=== PATIENT | female | born 1965 | race Caucasian/White ===

== ENCOUNTER 2016-10-03 17:32 | Emergency (ER) | payer SELFPAY ==
[~2016-10-03] VITALS: Ht 172.7 cm; Wt 65.8 kg
[2016-10-03 17:51] VITALS: BP 159/90
[2016-10-03 18:13] LABS: Basophils # (auto) 0 uL; Basophils % (auto) 0.4 % (0.0-2.0); DEFINITIVE VIEW TRANSMISSION; Eosinophils # (auto) 0 uL; Eosinophils % (auto) 0.4 % (0.0-7.0); Hematocrit 48.6 % (36.0-46.0); Hemoglobin 16.1 g/dL (12.2-16.2); Lymphocytes # (auto) 1.6 uL; Lymphocytes % (auto) 24.7 % (10.0-50.0); Mean Corpuscular Hemoglobin 34.4 pg (28.0-32.0); Mean Corpuscular Hgb Conc. 33.1 g/dL (32.0-36.0); Mean Corpuscular Volume 103.9 fL (80.0-100.0); Mean Platelet Volume 5.7 fL (7.4-10.4); Monocytes # (auto) 0.4 uL; Monocytes % (auto) 5.4 % (0.0-12.0); Neutrophils # (auto) 4.6 uL; Neutrophils % (auto) 69.1 % (37.0-80.0); Platelet Count (auto) 226 10^3/uL (140-450); Red Cell Distribution Width 13.6 % (11.6-16.0); White Blood Cell 6.7 10^3/uL (4.4-10.8)
[2016-10-03 18:31] LABS: Albumin 4.4 g/dL (3.4-5.0); BUN/Creatinine Ratio 13.2; Calcium 8.7 mg/dL (8.5-10.1); Potassium 4.1 mmol/L (3.5-5.1)
[2016-10-03 18:36] LABS: Bilirubin, Total 0.3 mg/dL (0.2-1.0); Total Protein 8.4 g/dL (6.4-8.2)
== END 2016-10-03 18:15 | disposition left against medical advice (07) ==
LOC: ER 17:37
DX: F10.120 Alcohol abuse with intoxication, uncomplicated (principal); Z53.21 Procedure and treatment not carried out due to patient leaving prior to being seen by health care provider
CPT/HCPCS: 36415; 80053; 80320; 84484; 85025; 93005

== ENCOUNTER 2017-07-31 19:19 | Emergency (ER) | payer SELFPAY ==
[~2017-07-31] VITALS: Ht 177.8 cm; Wt 68.0 kg
[2017-07-31 20:19] LABS: Basophils # (auto) 0.1 uL; Lymphocytes # (auto) 1.8 uL; Mean Corpuscular Hemoglobin 39.8 pg (28.0-32.0); Mean Corpuscular Hgb Conc. 34.8 g/dL (32.0-36.0); Monocytes # (auto) 0.7 uL
[2017-07-31 20:21] LABS: Eosinophils # (auto) 0.1 uL; Eosinophils % (auto) 1.1 % (0.0-7.0); Hematocrit 41.2 % (36.0-46.0); Hemoglobin 14.3 g/dL (12.2-16.2); Lymphocytes % (auto) 40.2 % (10.0-50.0); Mean Corpuscular Volume 114.6 fL (80.0-100.0); Monocytes % (auto) 14.8 % (0.0-12.0); Neutrophils # (auto) 1.8 uL; Neutrophils % (auto) 40.9 % (37.0-80.0); Platelet Count (auto) 106 10^3/uL (140-450); Red Blood Cells 3.59 10^6/uL (4.0-5.20); Red Cell Distribution Width 12.5 % (11.8-14.3); White Blood Cell 4.5 10^3/uL (4.4-10.8)
[2017-07-31 20:30] LABS: Amphetamine Screen, Urine NEGATIVE (NEGATIVE); Barbiturate Scree,Urine NEGATIVE (NEGATIVE); Benzodiazephine Screen, Urine NEGATIVE (NEGATIVE); Cannabinoid Screen, Urine NEGATIVE (NEGATIVE); Cocaine Screen, Urine NEGATIVE (NEGATIVE); Opiate Scree,Urine NEGATIVE (NEGATIVE); Phencyclidine Screen, Urine NEGATIVE (NEGATIVE)
[2017-07-31 20:34] LABS: Partial Thromboplastin Time 24.7 sec (22.64-33.71); Prothrombin Time 10.9 sec (9.37-12.3)
[2017-07-31 20:38] LABS: Alanine Aminotransferase 67 U/L (13-56); Albumin 4.2 g/dL (3.4-5.0); Alkaline Phosphatase 78 U/L (45-117); Anion Gap 13 (5-15); Aspartate Aminotransferase 116 U/L (15-37); BUN/Creatinine Ratio 13.8; Bilirubin, Total 0.3 mg/dL (0.2-1.0); Blood Urea Nitrogen 8 mg/dL (7-18); Calcium 9.4 mg/dL (8.5-10.1); Carbon Dioxide 27 mmol/L (21-32); Chloride 106 mmol/L (98-107); GFR African American 140 mL/min; GFR Non-African American 116 mL/min; Glucose 100 mg/dL (74-106); Magnesium 1.6 mg/dL (1.6-2.6); Potassium 3.4 mmol/L (3.5-5.1); Sodium 146 mmol/L (136-145); Total Protein 8.1 g/dL (6.4-8.2)
[2017-07-31] MEDS ORDERED: THIAMINE INJ 100 MG, MULTIPLE VITAMIN 10 ML, FOLIC ACID 1 MG, MAGNESIUM SULF SDV 50% 8 ... IV SCH ×5 (23:00)
[2017-08-01] MEDS ORDERED: SODIUM CHLORIDE 0.9% 500 ML IV ONE (00:30)
[2017-08-01] MEDS ORDERED: SODIUM CHLORIDE 0.9% 1,000 ML IV ONE (02:45)
[2017-08-01 02:56] VITALS: BP 124/77
[2017-08-01] MEDS ORDERED: FAMOTIDINE 20 MG TAB PO ONE (04:30)
[2017-08-01] MEDS ORDERED: ONDANSETRON HCL 4 MG/2 ML VIAL IV ONE (04:45)
== END 2017-08-01 05:55 | disposition home or self-care (01) ==
LOC: EDBD 19:19 → ER 19:19
DX: S02.0XXA Fracture of vault of skull, initial encounter for closed fracture (principal); G92 Toxic encephalopathy; F10.129 Alcohol abuse with intoxication, unspecified; W01.0XXA Fall on same level from slipping, tripping and stumbling without subsequent striking against object, initial encounter; Y93.89 Activity, other specified; Y92.092 Bedroom in other non-institutional residence as the place of occurrence of the external cause; Y99.8 Other external cause status
CPT/HCPCS: 36415; 70450; 80053; 80307; 80320; 83735; 84484; 85025; 85379; 85610; 85730; 93005; 96361; 96365; 96375; 99285; J2405; J3411; J3475; J7030

== ENCOUNTER 2020-03-09 11:04 | Inpatient (IN) | payer BC, OTHER ==
[~2020-03-09] VITALS: Ht 175.3 cm; Wt 82.0 kg
[2020-03-09] MEDS ORDERED: SODIUM CHLORIDE 0.9% 1,000 ML IVB ONE (11:17)
[2020-03-09 12:16] LABS: Hematocrit 36.3 % (36.0-46.0); Hemoglobin 12.4 g/dL (12.2-16.2); Mean Corpuscular Hemoglobin 37.1 pg (28.0-32.0); Mean Corpuscular Hgb Conc. 34.2 g/dL (32.0-36.0); Mean Corpuscular Volume 108.5 fL (80.0-100.0); Platelet Count (auto) 103 10^3/uL (140-450); Red Blood Cells 3.34 10^6/uL (4.0-5.20); Red Cell Distribution Width 14.3 % (11.8-14.3); White Blood Cell 12.6 10^3/uL (4.4-10.8)
[2020-03-09 12:40] LABS: Alanine Aminotransferase 41 U/L (13-56); Anion Gap 6 (5-15); Blood Alcohol < 3.0 mg/dL (0-5); Blood Urea Nitrogen 56 mg/dL (7-18); Calcium 11.4 mg/dL (8.5-10.1); Chloride 82 mmol/L (98-107); Glucose 92 mg/dL (74-106); Sodium 131 mmol/L (136-145)
[2020-03-09 12:43] LABS: Alkaline Phosphatase 95 U/L (45-117); Aspartate Aminotransferase 83 U/L (15-37); BUN/Creatinine Ratio 28.4; GFR African American 34 mL/min; GFR Non-African American 28 mL/min; Total Protein 6.9 g/dL (6.4-8.2)
[2020-03-09 12:57] LABS: Band Neutrophils % (manual) 0; Basophils % (manual) 0 (0.0-2.0); Blast Cells 0; Eosinophils % (manual) 0 (0-7); Metamyelocytes % 0; Promyelocytes % 0; Reactive Lymphocytes 0
[2020-03-09 13:07] LABS: Carbon Dioxide 43 mmol/L (21-32); Potassium 2.3 mmol/L (3.5-5.1)
[2020-03-09 13:18] LABS: Lymphocytes % (manual) 4 (10.0-50.0); Monocytes % (manual) 11 (0-12); Myelocytes % 1
[2020-03-09] MEDS: POTASSIUM CHL 20MEQ/100ML 100 ML IV SCH ×3 (13:52→18:10)
[2020-03-09] MEDS ORDERED: hydrALAZINE HCL 20 MG/ML VL IV PRN (16:15)
[2020-03-09] MEDS ORDERED: SODIUM CHLORIDE 0.9% 1,000 ML IV ONE ×2 (16:15→16:30)
[2020-03-09] MEDS ORDERED: NITROGLYCERIN 0.4 MG SL TAB SL PRN (16:15)
[2020-03-09] MEDS ORDERED: MORPHINE SULF INJ 2 MG/ML SYRINGE 1ML IV PRN ×2 (16:15)
[2020-03-09] MEDS ORDERED: ONDANSETRON HCL 4 MG/2 ML VIAL IV PRN (16:15)
--- NOTE | 2020-03-09 19:50 | NUR ---
Telemetry admit from [facility] LYNMARIE admitted to Telemetry unit. Patient oriented to SONI RASCON RN primary RN, unit, room, bed, and unit policies regarding patient care and visiting hours. Patient now on continuous telemetry monitoring, tele box #[id number] and telemetry reading on arrival to unit is sinus rhythm. Patient weighed by bed scale and encouraged to call if they need something. All questions and concerns addressed, patient verbalized understanding.
[2020-03-09] MEDS ORDERED: SOD CHL 0.9%/ KCL 20MEQ 1,000 ML IV ONE (20:00)
--- NOTE | 2020-03-09 21:30 | NUR ---
SPECIMEN Urine sample collected and sent to lab.
[2020-03-09 22:00] VITALS: BP 142/80
--- NOTE | 2020-03-09 22:00 | NUR ---
HOSPITALIST Paged hospitalist to report critical lab value K+ 2.8. Awaiting call back.
[2020-03-09 23:09] VITALS: BP 142/80
[2020-03-09 23:20] LABS: Urine Bacteria FEW /hpf (None Seen); Urine Blood Negative /uL (Negative); Urine Hyaline Cast FEW /lpf (0 - 2); Urine Mucus FEW (None Seen); Urine Specific Gravity 1.016 (1.001-1.035); Urine WBC 26 /hpf (0 - 5)
[2020-03-09 23:39] LABS: Alcohol, Urine < 3.0 mg/dL (0-10); Amphetamine Screen, Urine NEGATIVE (NEGATIVE); Barbiturate Scree,Urine NEGATIVE (NEGATIVE); Benzodiazephine Screen, Urine NEGATIVE (NEGATIVE); Cannabinoid Screen, Urine NEGATIVE (NEGATIVE); Cocaine Screen, Urine NEGATIVE (NEGATIVE); Opiate Scree,Urine NEGATIVE (NEGATIVE); Phencyclidine Screen, Urine NEGATIVE (NEGATIVE)
[2020-03-10] MEDS ORDERED: POTASSIUM CHL 20MEQ/100ML 100 ML IV SCH (00:15)
--- NOTE | 2020-03-10 00:18 | NUR ---
HOSPITALIST received call from Dr. Brandt. New orders received, read back and verified.
[2020-03-10] MEDS ORDERED: ACETAMINOPHEN 325 MG TAB PO PRN (00:30)
[2020-03-10] MEDS ORDERED: cefTRIAXone 1GM/50ML D5W 50 ML IV ONE (01:30)
--- NOTE | 2020-03-10 02:00 | NUR ---
IV insertion IV access obtained, via clean sterile technique by inserting 20 gauge catheter at right AC after 1 attempt. IV secured properly. No trauma to site. Patient tolerated well.
[2020-03-10 05:00] VITALS: BP 131/78
--- NOTE | 2020-03-10 07:30 | NUR ---
OPENING NOTE RECEIVED REPORT FROM NOC RN. POC GI DR. SPENCER, SURGICAL DR. Marleny BLAKE, HOSPITAL LIST DR. Cristi GIBBONS. POSSIBLE SURGERY ON Thursday03/12/20. PATIENT RESTING IN BED NO S/S OF DISTRESS.
[2020-03-10 07:48] LABS: Mean Corpuscular Volume 109.2 fL (80.0-100.0)
[2020-03-10 07:50] LABS: Hematocrit 34.8 % (36.0-46.0); Mean Corpuscular Hemoglobin 37.7 pg (28.0-32.0); Mean Corpuscular Hgb Conc. 34.5 g/dL (32.0-36.0); Platelet Count (auto) 119 10^3/uL (140-450); Red Blood Cells 3.19 10^6/uL (4.0-5.20); Red Cell Distribution Width 14.6 % (11.8-14.3); White Blood Cell 8.7 10^3/uL (4.4-10.8)
[2020-03-10 07:52] LABS: Band Neutrophils % (manual) 0; Basophils % (manual) 0 (0.0-2.0); Blast Cells 0; Metamyelocytes % 0; Myelocytes % 0; Promyelocytes % 0; Reactive Lymphocytes 0
[2020-03-10 08:10] VITALS: BP 129/85
[2020-03-10 08:17] LABS: Albumin 2.5 g/dL (3.4-5.0); BUN/Creatinine Ratio 42.3; Bilirubin, Total 0.7 mg/dL (0.2-1.0); Calcium 9.5 mg/dL (8.5-10.1); Total Protein 6.1 g/dL (6.4-8.2)
[2020-03-10 08:19] LABS: Eosinophils % (manual) 2 (0-7); Lymphocytes % (manual) 10 (10.0-50.0); Monocytes % (manual) 12 (0-12)
[2020-03-10 08:27] LABS: Potassium 2.9 mmol/L (3.5-5.1)
--- NOTE | 2020-03-10 08:35 | NUR ---
COMMUNICATION NOTIFIED DR. Cristi GIBBONS BY TELEPHONE EXCHANGE. PATIENT POTASSIUM 2.9, TRENDING INCREASE, LEFT MESSAGE FOR LAB FINDINGS
[2020-03-10 09:00] VITALS: BP 129/85
[2020-03-10] MEDS ORDERED: cefTRIAXone 1GM/50ML D5W 50 ML IV SCH (09:00)
[2020-03-10] MEDS ORDERED: POTASSIUM CHL 20MEQ/100ML 100 ML IV ONE ×3 (09:00→13:00)
[2020-03-10] MEDS: PANTOPRAZOLE 40 MG/10 ML VIAL INJ IV SCH (12:15)
--- NOTE | 2020-03-10 12:30 | NUR ---
NEW ORDERS PLACED ADDRESSING POTASSIUM LEVELS. ANI CONTINUE TO MONITOR.
[2020-03-10 13:00] VITALS: BP 138/92
--- NOTE | 2020-03-10 13:30 | NUR ---
IV INSERTION ATTEMPTED TO STICK IV 2X, LEFT ARM. UNSUCCESSFUL. WILL ATTEMPT AGAIN.
--- NOTE | 2020-03-10 13:35 | NUR ---
UNABLE TO TO HANG MAG. SULFATE. DO NOT HAVE 2 IV ACCESS SITES. WILL CONTINUE TO MONITOR.
[2020-03-10] MEDS: MAGNESIUM SULFATE 1GM/100ML 100 ML IV SCH ×3 (14:00→23:25)
[2020-03-10] MEDS: GABAPENTIN 300 MG CAP PO SCH ×3 (15:30→22:05)
--- NOTE | 2020-03-10 16:50 | NUR ---
IV PLACED IV insertion IV access obtained, via clean sterile technique by inserting gauge catheter at after attempt(s). IV secured properly. No trauma to site. Patient tolerated well. NOTE: 20G, LEFT AC. PATIENT TOLERATED WELL. HAVE NOT GIVEN IV MEDICATIONS IN BOTH ARMS R/T POOR IV ACCESS.
[2020-03-10 17:00] VITALS: BP 148/90
[2020-03-10] MEDS: levoFLOXacin 500MG 100 ML IV SCH (17:16)
[2020-03-10] MEDS: metroNIDAZOLE 500MG/100ML 100 ML IV SCH ×2 (19:25→22:05)
--- NOTE | 2020-03-10 19:50 | NUR ---
Opening Shift Note Received report from day shift RN. Assumed care of patient, awake and alert. Fall and safety precautions in place. No S/S of distress/SOB. Instructed patient on her POC and to call for assist PRN, patient verbalized understanding and in agreement. Call light within reach and able to use. Will continue to monitor for changes Q1hr and PRN.
[2020-03-10 22:00] VITALS: BP 108/42
--- NOTE | 2020-03-10 22:20 | NUR ---
NEW ORDERS RECEIVED CALL FROM Tabatha HILARIO MD RESPONDING TO VOICE-MESSAGE FROM DAY SHIFT RN. UPDATED MD ON MEDICATION THAT WAS NOT RECEIVED BY PATIENT (SEE EMAR) FOR MAGNESIUM REPLACEMENT. UPDATED MD ON PATIENT'S CURRENT LAB VALUES AND CURRENT IV ACCESS. RECEIVED NEW ORDERS, READ BACK AND VERIFIED (SEE NEW ORDERS). WILL CARRY OUT. WILL CONTINUE TO MONITOR PATIENT.
[2020-03-11] MEDS: MAGNESIUM SULFATE 1GM/100ML 100 ML IV SCH ×3 (00:33→02:55)
[2020-03-11 05:00] VITALS: BP 145/79
[2020-03-11] MEDS: metroNIDAZOLE 500MG/100ML 100 ML IV SCH ×3 (05:21→21:15)
[2020-03-11] MEDS: GABAPENTIN 300 MG CAP PO SCH ×3 (05:49→21:15)
[2020-03-11 06:44] LABS: Hemoglobin 12.6 g/dL (12.2-16.2); Platelet Count (auto) 170 10^3/uL (140-450)
[2020-03-11 06:51] LABS: Hematocrit 36.9 % (36.0-46.0); Mean Corpuscular Hemoglobin 37.3 pg (28.0-32.0); Mean Corpuscular Volume 109.7 fL (80.0-100.0); Red Blood Cells 3.37 10^6/uL (4.0-5.20); Red Cell Distribution Width 14.2 % (11.8-14.3); White Blood Cell 8.1 10^3/uL (4.4-10.8)
[2020-03-11 06:57] LABS: Basophils % (manual) 0 (0.0-2.0); Blast Cells 0; Metamyelocytes % 0; Myelocytes % 0; Promyelocytes % 0; Reactive Lymphocytes 0
[2020-03-11 07:20] LABS: Band Neutrophils % (manual) 1; Eosinophils % (manual) 4 (0-7); Lymphocytes % (manual) 10 (10.0-50.0); Monocytes % (manual) 18 (0-12)
--- NOTE | 2020-03-11 07:30 | NUR ---
OPENING NOTE RECEIVED REPORT FROM [facility] OLIVO. POC FOLLOW UP ON LAB, IV ACCESS, AND PAIN. PATIENT RESTING IN BED WITHOUT COMPLAINTS OF PAIN.
[2020-03-11 08:15] VITALS: BP 139/83
[2020-03-11 09:00] VITALS: BP 139/83
[2020-03-11] MEDS: FOLIC ACID 1 MG TAB PO SCH (10:16)
[2020-03-11] MEDS: levoFLOXacin 500MG 100 ML IV SCH (10:16)
[2020-03-11] MEDS: PANTOPRAZOLE 40 MG/10 ML VIAL INJ IV SCH (10:16)
[2020-03-11] MEDS: ENOXAPARIN SOD 40 MG/0.4 ML SYRINGE SC SCH (10:16)
[2020-03-11] MEDS: THIAMINE HCL 100 MG TAB PO SCH (10:16)
[2020-03-11 10:34] LABS: Albumin 2.3 g/dL (3.4-5.0); Calcium 8.8 mg/dL (8.5-10.1); Magnesium 2.3 mg/dL (1.6-2.6); Potassium 3.1 mmol/L (3.5-5.1)
[2020-03-11 10:43] LABS: BUN/Creatinine Ratio 31.2; Bilirubin, Total 0.6 mg/dL (0.2-1.0)
[2020-03-11] MEDS ORDERED: FOLIC ACID 1 MG, MULTIPLE VITAMIN 10 ML, MAGNESIUM SULF SDV 50% 8 MEQ, THIAMINE INJ 100... INJ SCH ×5 (12:00)
[2020-03-11 13:00] VITALS: BP 142/86
[2020-03-11] MEDS ORDERED: GABAPENTIN 300 MG CAP PO ONE (13:15)
[2020-03-11] MEDS ORDERED: POTASSIUM CHL 20MEQ/100ML 100 ML IV ONE (13:15)
--- NOTE | 2020-03-11 13:40 | NUR ---
MID LINE LACED ORDER FOR MID LINE, CALLED HOUSE SUP TO REQUEST MIDLINE, DO NOT HAVE ANYONE ONCALL FOR MIDLINE. WILL UPDATE DR. ALEJANDRO GIBBONS.
--- NOTE | 2020-03-11 13:42 | NUR ---
IV ACCESS ONLY HAVE SINGLE LINE IV ACCESS, MID LINE NOT AVAILABLE. WILL NOTIFY PROVIDER.
--- NOTE | 2020-03-11 14:11 | NUR ---
Nutrition Assessment Note please see attached link for complete assessment [employer] needs BW 78 [id number] kcals (23-25 kcal/kgBW), Est Protein needs: 78-85gms/day (1.0-1.1 gm/kgBW). Will continue to monitor and reassess prn. Addendum: 03/11/20 at [address] Amended: Links added.
--- NOTE | 2020-03-11 14:15 | NUR ---
IV insertion IV access obtained, via clean sterile technique by inserting 22 gauge catheter at LEFT HAND after 1 attempt(s). IV secured properly. No trauma to site. Patient tolerated well. NOTE:
--- NOTE | 2020-03-11 15:57 | NUR ---
COMMUNICATION LEFT DR. GIBBONS MESSAGE. PATIENT HAS IV ACCESS TO LEFT HAND AND IS RUNNING K-RIDDER, ORDERED. BEHIND ON IV FLUIDS, NOTED.
[2020-03-11 17:00] VITALS: BP 110/57
[2020-03-11] MEDS: D5W/SOD CHL 0.45%/KCL 20MEQ 1,000 ML IV SCH ×2 (18:37→23:15)
--- NOTE | 2020-03-11 19:03 | NUR ---
LBM 03/11/20
--- NOTE | 2020-03-11 19:40 | NUR ---
RE: C/O INSOMNIA PATIENT REQUESTS MEDICATION TO HELP HER SLEEP. PATIENT STATES SHE NORMALLY TAKES "2 SLEEP AIDS" AT HOME TO HELP HER FALL ASLEEP. CALLED DR. GIBBONS'S PHONE NUMBER, MD SAMUEL ANSWERED WHO IS COVERING. UPDATED MD ON PATIENT STATUS AND PATIENT REQUEST. RECEIVED NEW ORDER, READ BACK AND VERIFIED. WILL CARRY OUT. WILL CONTINUE TO MONITOR.
--- NOTE | 2020-03-11 19:40 | NUR ---
Opening Shift Note Assumed care of patient, awake and alert. Fall and safety precautions in place. No S/S of distress/SOB. Instructed patient on her POC and to call for assist PRN, patient verbalized understanding and in agreement. Call light within reach and able to use. Will continue to monitor for changes Q1hr and PRN. Addendum: 03/12/20 at 0122 by PALLAVI FLORES RN RN Time Amend: [id number]
[2020-03-11] MEDS ORDERED: ZOLPIDEM TARTRATE 5 MG TAB PO ONE (21:30)
--- NOTE | 2020-03-11 21:30 | NUR ---
Re: New Orders Received new orders from [facility] for prn medication for insomnia, read back and verified (see new orders). Will continue to monitor.
[2020-03-11 22:00] VITALS: BP 156/84
[2020-03-12 05:23] VITALS: BP 163/84
[2020-03-12] MEDS: GABAPENTIN 300 MG CAP PO SCH ×3 (05:26→21:00)
[2020-03-12] MEDS: metroNIDAZOLE 500MG/100ML 100 ML IV SCH ×2 (05:26→14:03)
[2020-03-12] MEDS: D5W/SOD CHL 0.45%/KCL 20MEQ 1,000 ML IV SCH ×2 (05:27→18:25)
--- NOTE | 2020-03-12 05:30 | NUR ---
High BP Patient's blood pressure 163/84, heart rate 93 bpm. Per MD order, will administer prn BP medication (see emar for administration). Will continue to monitor.
[2020-03-12 06:26] VITALS: BP 139/73
--- NOTE | 2020-03-12 06:30 | NUR ---
BP Recheck BP now 139/73 mmHg, Heart Rate 98 bpm. Will continue to monitor.
--- NOTE | 2020-03-12 07:45 | NUR ---
Opening Shift Note Assumed care of patient, asleep, even unlabored respirations. No S/S of distress/SOB or pain. Will continue to monitor for changes Q1hr and PRN.
[2020-03-12 07:53] LABS: Hemoglobin 12.2 g/dL (12.2-16.2); Mean Corpuscular Hgb Conc. 34.3 g/dL (32.0-36.0); Mean Corpuscular Volume 107.8 fL (80.0-100.0); White Blood Cell 8.4 10^3/uL (4.4-10.8)
[2020-03-12 07:55] LABS: Hematocrit 35.5 % (36.0-46.0); Platelet Count (auto) 235 10^3/uL (140-450); Red Blood Cells 3.29 10^6/uL (4.0-5.20); Red Cell Distribution Width 14.3 % (11.8-14.3)
[2020-03-12 08:04] LABS: Basophils % (manual) 0 (0.0-2.0); Blast Cells 0; Eosinophils % (manual) 0 (0-7); Metamyelocytes % 0; Promyelocytes % 0; Reactive Lymphocytes 0
[2020-03-12 08:05] LABS: Albumin 2.3 g/dL (3.4-5.0); Calcium 7.4 mg/dL (8.5-10.1)
[2020-03-12 08:18] LABS: BUN/Creatinine Ratio 12.7; Bilirubin, Total 0.7 mg/dL (0.2-1.0); Total Protein 5.8 g/dL (6.4-8.2)
[2020-03-12 08:24] LABS: Band Neutrophils % (manual) 1; Lymphocytes % (manual) 14 (10.0-50.0); Monocytes % (manual) 10 (0-12); Myelocytes % 1
[2020-03-12 08:35] LABS: Potassium 2.9 mmol/L (3.5-5.1)
--- NOTE | 2020-03-12 08:35 | NUR ---
LAB CRITICAL POTASSIUM 2.9
--- NOTE | 2020-03-12 08:35 | NUR ---
PAGE PAGED DR Cristi GIBBONS RE: PATIENT POTASSIUM 2.9. AWAITING RETURN CALL
--- NOTE | 2020-03-12 08:45 | NUR ---
MD CALL BACK RECEIVED RETURN CALL FROM DR Cristi GIBBONS RE: PATIENT POTASSIUM 2.9. NEW ORDERS RECEIVED/WILL CARRY OUT. WILL CONTINUE TO MONITOR
[2020-03-12 09:00] VITALS: BP 138/73
[2020-03-12] MEDS ORDERED: POTASSIUM CHL 20 Meq TABLET PO ONE ×2 (09:00→14:30)
[2020-03-12] MEDS ORDERED: POTASSIUM CHL 20MEQ/100ML 100 ML IV ONE ×2 (09:00→14:00)
[2020-03-12] MEDS: FOLIC ACID 1 MG TAB PO SCH (09:34)
[2020-03-12] MEDS: ENOXAPARIN SOD 40 MG/0.4 ML SYRINGE SC SCH (09:34)
[2020-03-12] MEDS: THIAMINE HCL 100 MG TAB PO SCH (09:34)
[2020-03-12] MEDS: levoFLOXacin 500MG 100 ML IV SCH (09:35)
[2020-03-12] MEDS: PANTOPRAZOLE 40 MG/10 ML VIAL INJ IV SCH (09:35)
[2020-03-12 13:00] VITALS: BP 124/78
--- NOTE | 2020-03-12 14:00 | NUR ---
Midline Placement: Patient educated on need for midline placement. All risks and benefits explained and all questions and concerns addresses prior to procedure. 18g/10cm midline inserted via left basilic vein using Ultrasound. Sterile technique utilized. Blood return obtained from lumen and flushed easily with NS using proper technique. Midline secured with saline lock; biodisc and occlusive dressing applied. Primary RN notified. Midline lot #[id number]
[2020-03-12] MEDS ORDERED: GABA300C10 PO (15:37)
[2020-03-12] MEDS ORDERED: MET500T PO (15:37)
[2020-03-12] MEDS ORDERED: THIA100T10 PO (15:37)
[2020-03-12] MEDS ORDERED: LEVO-28 PO (15:37)
[2020-03-12] MEDS ORDERED: FOLI1TAB6 PO (15:37)
[2020-03-12 17:00] VITALS: BP 129/74
--- NOTE | 2020-03-12 17:38 | NUR ---
Assessment Regarding social service consult for alcoholism. Patient is a 54-year old female who is alert and oriented. Prior to admission patient lived with her and functioned independently. Patient informed me she consumes alcohol every day and she enjoys drinking. Offered patient resource for rehabilitation. Patient accepted the resource. Per patient she will return to her prior living arrangements and family will transport her home. Patient verbalize understanding discharge plan. Informed AC Berg.
[2020-03-12] MEDS ORDERED: ZOLPIDEM TARTRATE 5 MG TAB PO PRN (20:00)
--- NOTE | 2020-03-12 20:53 | NUR ---
RE: LAB RESULTS DIRECTOR OF SCOUT WORK CAME TO UNIT AT THIS TIME STATING THAT BLOOD FROM PREVIOUS LAB DRAW HEMOLYZED. AT THIS TIME, DIRECTOR OF SCOUT WORK DRAWS NEW BLOOD. AWAITING RESULTS PRIOR TO DISCHARGE, PATIENT VERBALIZED UNDERSTANDING AND IN AGREEMENT. WILL CONTINUE TO MONITOR.
--- NOTE | 2020-03-12 21:50 | NUR ---
RE: LAB RESULTS / DISCHARGE RECEIVED LAB RESULTS OF POTASSIUM 4.1 AT THIS TIME. WILL NOTIFY PATIENT. WILL INITIATE FINAL DISCHARGE NEEDS, PER MD ORDER. WILL CONTINUE TO MONITOR.
[2020-03-12] MEDS ORDERED: metroNIDAZOLE 500 MG TAB PO SCH (22:00)
--- NOTE | 2020-03-12 22:00 | NUR ---
IV removal X2 IV X2 DC'd with clean sterile technique, catheters fully intact. Pressure dressing applied to site, patient tolerated well. Patient education given to maintain pressure dressing, patient verbalized understanding and in agreemnt.
--- NOTE | 2020-03-12 22:05 | NUR ---
CALLED NO ANSWER. LEFT VOICEMAIL. WILL ATTEMPT CALL BACK. WILL CONTINUE TO MONITOR.
--- NOTE | 2020-03-12 22:19 | NUR ---
Re: Discharge Contact Spoke to Janes, he understands that patient is ready to be picked up and instructions given, he verbalized understanding and in agreement. He stated he should arrive within 10 minutes. Will continue to monitor.
--- NOTE | 2020-03-12 22:30 | NUR ---
Regular Discharge All patient belongings with patient. Patient discharge instructions given, all questions answered. Patient given education on follow- up appointment with PCP. Patient verbalized understanding and in agreement with discharge instructions. Patient wheeled down safely by staff member through emergency entrance, picked up by her Janes. Patient's tele monitor returned intact to tele respiratory technician room.
[2020-03-13] MEDS ORDERED: levoFLOXacin 500 MG TAB PO SCH (10:00)
== END 2020-03-12 22:30 | disposition home or self-care (01) | DRG 438 ==
LOC: EDBD 11:04 → ER 11:04 → TELE 11:05 → TELE-CENTR 19:50
PROVIDERS: ADMIT Internal Medicine; ATTEND Internal Medicine
DX: K85.20 Alcohol induced acute pancreatitis without necrosis or infection (principal); N17.0 Acute kidney failure with tubular necrosis; N39.0 Urinary tract infection, site not specified; J98.11 Atelectasis; K80.20 Calculus of gallbladder without cholecystitis without obstruction; E87.6 Hypokalemia; D72.829 Elevated white blood cell count, unspecified; R16.0 Hepatomegaly, not elsewhere classified; E83.42 Hypomagnesemia; F10.129 Alcohol abuse with intoxication, unspecified; F17.210 Nicotine dependence, cigarettes, uncomplicated; K57.30 Diverticulosis of large intestine without perforation or abscess without bleeding; F32.9 Major depressive disorder, single episode, unspecified; E88.89 Other specified metabolic disorders
CPT/HCPCS: 36415; 36600; 71045; 74176; 80053; 80307; 80320; 81001; 82805; 83690; 83735; 84132; 85007; 85027; 87086; 93005; 96360; 96361; C9113; G0378; J0696; J1956; J3480; J3490

== ENCOUNTER 2020-10-23 12:20 | Inpatient (IN) | payer OTHER ==
[~2020-10-23] VITALS: Ht 177.8 cm; Wt 60.0 kg
[~2020-10-23 12:20] MED LIST: FOLI1TAB6 PO; GABA300C10 PO; LEVO-28 PO; MET500T PO; THIA100T10 PO
[2020-10-23] MEDS ORDERED: SODIUM CHLORIDE 0.9% 1,000 ML IV ONE (12:30)
[2020-10-23 13:20] LABS: Basophils # (auto) 0 10 ^3/uL (0-0.2); Eosinophils # (auto) 0 10 ^3/uL (0-0.8); Hemoglobin 11.3 g/dL (12.2-16.2); Lymphocytes # (auto) 0.4 10 ^3/uL (0.4-5.4); Mean Corpuscular Volume 109.6 fL (80.0-100.0); Monocytes # (auto) 0.9 10 ^3/uL (0-1.3); Neutrophils # (auto) 4.4 10 ^3/uL (1.6-8.6); Neutrophils % (auto) 76.8 % (37.0-80.0); Platelet Count (auto) 66 10^3/uL (140-450)
[2020-10-23 13:22] LABS: Basophils % (auto) 0.2 % (0.0-2.0); Eosinophils % (auto) 0.2 % (0.0-7.0); Hematocrit 31.4 % (36.0-46.0); Lymphocytes % (auto) 6.6 % (10.0-50.0); Mean Corpuscular Hemoglobin 39.4 pg (28.0-32.0); Monocytes % (auto) 16.2 % (0.0-12.0); Nucleated Red Blood Cells % 0.4 %; Red Blood Cells 2.87 10^6/uL (4.0-5.20); Red Cell Distribution Width 12.1 % (11.8-14.3); White Blood Cell 5.7 10^3/uL (4.4-10.8)
[2020-10-23 13:39] LABS: Albumin 2.5 g/dL (3.4-5.0); Anion Gap 6 (5-15); Blood Alcohol < 3.0 mg/dL (0-5); Blood Urea Nitrogen 39 mg/dL (7-18); Calcium 8.4 mg/dL (8.5-10.1); Carbon Dioxide 39 mmol/L (21-32); Chloride 88 mmol/L (98-107); Glucose 228 mg/dL (74-106); Sodium 133 mmol/L (136-145)
[2020-10-23 13:44] LABS: Alanine Aminotransferase 43 U/L (13-56); Alkaline Phosphatase 80 U/L (45-117); Aspartate Aminotransferase 93 U/L (15-37); BUN/Creatinine Ratio 52.7; GFR African American 104 mL/min; GFR Non-African American 86 mL/min; Total Protein 5.2 g/dL (6.4-8.2)
[2020-10-23 13:52] LABS: Potassium 1.7 mmol/L (3.5-5.1)
[2020-10-23] MEDS ORDERED: POTASSIUM CHL 20MEQ/100ML 100 ML IV ONE (14:00)
[2020-10-23] MEDS ORDERED: POTASSIUM CHL 20 Meq TABLET PO ONE (14:00)
[2020-10-23] MEDS ORDERED: POTASSIUM CHLORIDE 40 MEQ, LIDOCAINE 1% (LOCAL ANESTH.) 4 ML in SODIUM CHL 0.9% 250 ML IV ONE (15:15)
[2020-10-23] MEDS ORDERED: chlordiazePOXIDE HCL 5 MG CAP PO PRN (15:15)
[2020-10-23] MEDS ORDERED: MORPHINE SULF INJ 2 MG/ML SYRINGE 1ML IV PRN (15:15)
[2020-10-23] MEDS ORDERED: NITROGLYCERIN 0.4 MG SL TAB SL PRN (15:15)
[2020-10-23] MEDS ORDERED: BIOT50007 PO (17:13)
[2020-10-23] MEDS ORDERED: MULT-927 PO (17:13)
[2020-10-23] MEDS ORDERED: ZINC100T5 PO (17:13)
[2020-10-23] MEDS ORDERED: MAGN400T40 PO (17:13)
[2020-10-23] MEDS ORDERED: CALC-312 PO (17:13)
[2020-10-23] MEDS ORDERED: GINK120T3 PO (17:14)
[2020-10-23] MEDS ORDERED: CALC-239 PO (17:14)
[2020-10-23] MEDS ORDERED: OMEG100078 PO (17:15)
[2020-10-23] MEDS ORDERED: NUTR-709 PO (17:16)
[2020-10-23] MEDS: FOLIC ACID 1 MG, MAGNESIUM SULF SDV 50% 8 MEQ, THIAMINE INJ 100 MG in D5W 5% 1,000 ML INJ SCH (21:53)
[2020-10-24 06:42] VITALS: BP 123/81
[2020-10-24 08:00] VITALS: BP 138/85
[2020-10-24] MEDS: PANTOPRAZOLE 40 MG TAB PO SCH (09:58)
[2020-10-24 10:27] LABS: INR 1.04 (0.9-1.15); Partial Thromboplastin Time 20.9 sec (23.0-31.2)
[2020-10-24 10:34] LABS: Calcium 10.1 mg/dL (8.5-10.1); Magnesium 1.8 mg/dL (1.6-2.6)
[2020-10-24 10:37] LABS: BUN/Creatinine Ratio 55.7
[2020-10-24 10:42] LABS: Potassium 2.5 mmol/L (3.5-5.1)
[2020-10-24 10:43] LABS: Hemoglobin 12.3 g/dL (12.2-16.2)
[2020-10-24 10:45] LABS: Hematocrit 34.2 % (36.0-46.0); Mean Corpuscular Hemoglobin 39.3 pg (28.0-32.0); Mean Corpuscular Hgb Conc. 36.1 g/dL (32.0-36.0); Mean Corpuscular Volume 109.1 fL (80.0-100.0); Platelet Count (auto) 105 10^3/uL (140-450); Red Blood Cells 3.13 10^6/uL (4.0-5.20); Red Cell Distribution Width 12.3 % (11.8-14.3); White Blood Cell 6.7 10^3/uL (4.4-10.8)
[2020-10-24 10:50] LABS: Basophils % (manual) 0 (0.0-2.0); Blast Cells 0; Eosinophils % (manual) 0 (0-7); Metamyelocytes % 0; Myelocytes % 0; Promyelocytes % 0; Reactive Lymphocytes 0
[2020-10-24] MEDS ORDERED: POTASSIUM CHLORIDE 60 MEQ, LIDOCAINE 1% (LOCAL ANESTH.) 6 ML in SODIUM CHL 0.9% 500 ML IV ONE (11:00)
[2020-10-24 11:21] LABS: Folate (Folic Acid) > 24.00 ng/mL (5.38-24)
[2020-10-24] MEDS: MAGNESIUM SULFATE 1GM/100ML 100 ML IV SCH ×2 (11:49→15:40)
[2020-10-24] MEDS: FOLIC ACID 1 MG, MAGNESIUM SULF SDV 50% 8 MEQ, THIAMINE INJ 100 MG in D5W 5% 1,000 ML INJ SCH (12:00)
[2020-10-24] MEDS ORDERED: SODIUM PHOSPHATES 40 MEQ in D5W 5% 250 ML IV ONE (12:15)
[2020-10-24 12:18] LABS: Band Neutrophils % (manual) 3; Lymphocytes % (manual) 9 (10.0-50.0); Monocytes % (manual) 16 (0-12)
[2020-10-24] MEDS ORDERED: THIAMINE 100mg/ml INJ (200mg/2ml VIAL) IV ONE (13:30)
[2020-10-24 16:10] VITALS: BP 129/75
[2020-10-24] MEDS: Ensure Enlive Strawberry 8oz Bottle PO SCH (18:00)
[2020-10-24] MEDS: SOD CHL 0.9%/ KCL 20MEQ 1,000 ML IV SCH (21:12)
[2020-10-24 21:55] VITALS: BP 136/72
[2020-10-24 21:57] LABS: Amphetamine Screen, Urine NEGATIVE (NEGATIVE); Barbiturate Scree,Urine NEGATIVE (NEGATIVE); Benzodiazephine Screen, Urine NEGATIVE (NEGATIVE); Cannabinoid Screen, Urine NEGATIVE (NEGATIVE); Cocaine Screen, Urine NEGATIVE (NEGATIVE); Opiate Scree,Urine NEGATIVE (NEGATIVE); Phencyclidine Screen, Urine NEGATIVE (NEGATIVE)
[2020-10-25 05:07] VITALS: BP 137/86
[2020-10-25 08:00] VITALS: BP 140/87
[2020-10-25] MEDS: PANTOPRAZOLE 40 MG TAB PO SCH (09:25)
[2020-10-25] MEDS: Ensure Enlive Strawberry 8oz Bottle PO SCH ×3 (09:25→19:07)
[2020-10-25] MEDS: THIAMINE 100mg/ml INJ (200mg/2ml VIAL) IV SCH (09:26)
[2020-10-25 10:30] LABS: BUN/Creatinine Ratio 43.6; Calcium 8.5 mg/dL (8.5-10.1); Magnesium 1.9 mg/dL (1.6-2.6); Phosphorus 2.3 mg/dL (2.5-4.90)
[2020-10-25 10:55] LABS: Potassium 2.8 mmol/L (3.5-5.1)
[2020-10-25] MEDS ORDERED: POTASSIUM PHOSPHATE 44 MEQ in D5W 5% 250 ML IV ONE (11:15)
[2020-10-25] MEDS: SOD CHL 0.9%/ KCL 20MEQ 1,000 ML IV SCH (12:19)
[2020-10-25] MEDS: FOLIC ACID 1 MG, MAGNESIUM SULF SDV 50% 8 MEQ, THIAMINE INJ 100 MG in D5W 5% 1,000 ML INJ SCH (12:20)
[2020-10-25] MEDS: MAGNESIUM SULFATE 1GM/100ML 100 ML IV SCH ×2 (14:05→15:06)
[2020-10-25 17:00] VITALS: BP 147/69
[2020-10-25 21:54] VITALS: BP 117/80
[2020-10-26] MEDS: SOD CHL 0.9%/ KCL 20MEQ 1,000 ML IV SCH ×3 (01:20→23:56)
[2020-10-26 05:37] VITALS: BP 126/80
[2020-10-26 06:57] LABS: BUN/Creatinine Ratio 33.3; Calcium 8.1 mg/dL (8.5-10.1)
[2020-10-26 07:38] LABS: Potassium 2.9 mmol/L (3.5-5.1)
[2020-10-26 08:00] VITALS: BP 103/73
[2020-10-26] MEDS: Ensure Enlive Strawberry 8oz Bottle PO SCH ×3 (08:50→18:49)
[2020-10-26] MEDS: THIAMINE 100mg/ml INJ (200mg/2ml VIAL) IV SCH (08:50)
[2020-10-26] MEDS: PANTOPRAZOLE 40 MG TAB PO SCH (08:51)
[2020-10-26] MEDS: FOLIC ACID 1 MG, MAGNESIUM SULF SDV 50% 8 MEQ, THIAMINE INJ 100 MG in D5W 5% 1,000 ML INJ SCH (12:00)
[2020-10-26] MEDS ORDERED: POTASSIUM CHLORIDE 40 MEQ, LIDOCAINE 1% (LOCAL ANESTH.) 4 ML in SODIUM CHL 0.9% 250 ML IV ONE (13:30)
[2020-10-26 16:11] VITALS: BP 96/54
[2020-10-26 21:18] VITALS: BP 123/59
[2020-10-26 22:56] LABS: Calcium 7.9 mg/dL (8.5-10.1); Potassium 3.8 mmol/L (3.5-5.1)
[2020-10-27 04:42] VITALS: BP 95/53
[2020-10-27 06:36] LABS: Potassium 3.5 mmol/L (3.5-5.1)
[2020-10-27 06:50] LABS: Hemoglobin 11.8 g/dL (12.2-16.2); White Blood Cell 6.9 10^3/uL (4.4-10.8)
[2020-10-27 06:52] LABS: Hematocrit 34.1 % (36.0-46.0); Mean Corpuscular Hemoglobin 38.9 pg (28.0-32.0); Mean Corpuscular Hgb Conc. 34.7 g/dL (32.0-36.0); Platelet Count (auto) 224 10^3/uL (140-450); Red Blood Cells 3.05 10^6/uL (4.0-5.20); Red Cell Distribution Width 12.7 % (11.8-14.3)
[2020-10-27 07:11] LABS: Albumin 2.4 g/dL (3.4-5.0); BUN/Creatinine Ratio 38.1; Bilirubin, Total 0.9 mg/dL (0.2-1.0); Calcium 7.4 mg/dL (8.5-10.1); Total Protein 6.2 g/dL (6.4-8.2)
[2020-10-27 07:33] LABS: Basophils % (manual) 0 (0.0-2.0); Blast Cells 0; Metamyelocytes % 0; Promyelocytes % 0; Reactive Lymphocytes 0
[2020-10-27 07:51] VITALS: BP 109/59
[2020-10-27] MEDS: Ensure Enlive Strawberry 8oz Bottle PO SCH ×3 (08:00→18:00)
[2020-10-27] MEDS: THIAMINE 100mg/ml INJ (200mg/2ml VIAL) IV SCH (10:44)
[2020-10-27] MEDS: PANTOPRAZOLE 40 MG TAB PO SCH (10:45)
[2020-10-27 13:39] LABS: Band Neutrophils % (manual) 1; Eosinophils % (manual) 2 (0-7); Lymphocytes % (manual) 13 (10.0-50.0); Monocytes % (manual) 26 (0-12); Myelocytes % 1
[2020-10-27] MEDS: FOLIC ACID 1 MG, MAGNESIUM SULF SDV 50% 8 MEQ, THIAMINE INJ 100 MG in D5W 5% 1,000 ML INJ SCH (14:51)
[2020-10-27 16:00] VITALS: BP 99/58
[2020-10-27] MEDS: SOD CHL 0.9%/ KCL 20MEQ 1,000 ML IV SCH (16:40)
[2020-10-27] MEDS: ACETAMINOPHEN 325 MG TAB PO PRN (17:15)
[2020-10-27 23:54] VITALS: BP 115/70
[2020-10-28 05:00] VITALS: BP 122/71
[2020-10-28] MEDS: SOD CHL 0.9%/ KCL 20MEQ 1,000 ML IV SCH (05:19)
[2020-10-28 06:43] LABS: Potassium 3.9 mmol/L (3.5-5.1)
[2020-10-28] MEDS: ACETAMINOPHEN 325 MG TAB PO PRN (06:48)
[2020-10-28 06:50] LABS: BUN/Creatinine Ratio 34.7; Calcium 7.4 mg/dL (8.5-10.1)
[2020-10-28 07:04] LABS: Hemoglobin 11.3 g/dL (12.2-16.2)
[2020-10-28 07:06] LABS: Mean Corpuscular Hemoglobin 39.1 pg (28.0-32.0); Mean Corpuscular Hgb Conc. 35.2 g/dL (32.0-36.0); Mean Corpuscular Volume 111.1 fL (80.0-100.0); Platelet Count (auto) 285 10^3/uL (140-450); Red Blood Cells 2.88 10^6/uL (4.0-5.20); Red Cell Distribution Width 12.2 % (11.8-14.3); White Blood Cell 7.5 10^3/uL (4.4-10.8)
[2020-10-28 07:10] LABS: Basophils % (manual) 0 (0.0-2.0); Blast Cells 0; Metamyelocytes % 0; Myelocytes % 0; Promyelocytes % 0; Reactive Lymphocytes 0
[2020-10-28 08:00] VITALS: BP 99/53
[2020-10-28] MEDS: Ensure Enlive Strawberry 8oz Bottle PO SCH ×2 (08:00→12:00)
[2020-10-28] MEDS: THIAMINE 100mg/ml INJ (200mg/2ml VIAL) IV SCH (10:00)
[2020-10-28] MEDS: PANTOPRAZOLE 40 MG TAB PO SCH (11:15)
[2020-10-28 11:43] VITALS: BP 99/53
[2020-10-28] MEDS: FOLIC ACID 1 MG, MAGNESIUM SULF SDV 50% 8 MEQ, THIAMINE INJ 100 MG in D5W 5% 1,000 ML INJ SCH (12:00)
[2020-10-28] MEDS ORDERED: MECLIZINE HCL 25 MG TAB PO ONE (12:30)
[2020-10-28] MEDS ORDERED: IBUPROFEN 400 MG TAB PO PRN (12:30)
[2020-10-28 14:07] LABS: Band Neutrophils % (manual) 5; Lymphocytes % (manual) 21 (10.0-50.0)
[2020-10-28 14:08] LABS: Eosinophils % (manual) 3 (0-7); Monocytes % (manual) 14 (0-12)
== END 2020-10-28 15:15 | disposition home or self-care (01) | DRG 640 ==
LOC: ER 12:20 → EDBD 12:21 → TELE 12:21 → TELE-CENTR 10-24 04:20
PROVIDERS: ADMIT Nurse Practitioner Acute Care; ATTEND Internal Medicine
DX: E87.6 Hypokalemia (principal); G93.41 Metabolic encephalopathy; E43 Unspecified severe protein-calorie malnutrition; E44.0 Moderate protein-calorie malnutrition; F10.239 Alcohol dependence with withdrawal, unspecified; Z68.1 Body mass index [BMI] 19.9 or less, adult; D53.9 Nutritional anemia, unspecified; D69.6 Thrombocytopenia, unspecified; D75.89 Other specified diseases of blood and blood-forming organs; Z20.822 Contact with and (suspected) exposure to COVID-19; F10.229 Alcohol dependence with intoxication, unspecified; F17.210 Nicotine dependence, cigarettes, uncomplicated; F32.9 Major depressive disorder, single episode, unspecified; H83.09 Labyrinthitis, unspecified ear; J32.9 Chronic sinusitis, unspecified; K70.9 Alcoholic liver disease, unspecified; S01.01XA Laceration without foreign body of scalp, initial encounter; R62.7 Adult failure to thrive; R73.9 Hyperglycemia, unspecified; W18.39XA Other fall on same level, initial encounter; Y93.89 Activity, other specified; Y92.89 Other specified places as the place of occurrence of the external cause; Z79.899 Other long term (current) drug therapy; Y99.8 Other external cause status
CPT/HCPCS: 36415; 70450; 71045; 72125; 80048; 80053; 80061; 80307; 80320; 82140; 82607; 82746; 83036; 83735; 84100; 84443; 84484; 85007; 85025; 85027; 85610; 85730; 87426; 93005; 96365; 96366; 96367; 97163; 99291; G0378; J2001; J3480; J7060